=== PATIENT | female | born 1985 | race Caucasian/White ===

== ENCOUNTER 2017-07-25 12:17 | Emergency (ER) | payer BC, OTHER ==
[2017-07-25 12:54] VITALS: BP 143/71
[2017-07-25] MEDS ORDERED: metroNIDAZOLE TAB* 250 MG PO ONE (14:15)
--- NOTE | 2017-07-25 14:31 | UC ---
Matthew Al Rebecca, scribed for Lavinia Small MD on 07/25/17 at 1404 . Complaint Female HPI - HPI Summary HPI Summary: Pt is a 32 y/o F who presents to [facility] with report of bacterial vaginosis. For 2 days she has been experiencing vaginal discharge, vaginal itching and vaginal malodor after intercourse. Sx aggravated and alleviated by nothing. Denies dysuria, back pain, fever, chills. Pt states has a history or recurrent bacterial vaginosis. Pt states this is the same. Last Pt PMHx bacterial vaginosis with the last incident about 1 month ago where she was seen by [facility], had a pelvic exam done and was given a Dx of BV. Pt reports frequent incidences of BV with no PMHx STDs. No chance of . Pt denies dysuria, hematuria. nO back pain, fever - History Of Current Complaint Chief Complaint[place] [facility] Stated Complaint: BURNING URINATION Time Seen by Provider: 07/25/17 13:54 Hx Obtained From: Patient Hx Last Menstrual Period: 06/11/17 Onset/Duration: Lasting Days - 2 days, Still Present Severity Currently: None Pain Intensity: 0 Pain Scale Used: 0-10 Numeric Aggravating Factor(s): Nothing Alleviating Factor(s): Nothing Associated Signs And Symptoms: Positive: Vaginal Discharge Related Hx: Similar Episode/Dx as: - Bacterial vaginosis - Allergies/Home Medications Allergies/Adverse Reactions: Allergies Allergy/AdvReac Type Severity Reaction Status Date / Time Ibuprofen Allergy Hives Verified 07/25/17 12:54 Home Medications: Home Medications Apple Cider Vinegar 1 cap PO DAILY 07/25/17 [History Confirmed 07/25/17] Ascorbic Acid [Vitamin C] 1 tab PO DAILY 07/25/17 [History Confirmed 07/25/17] Cyanocobalamin [Vitamin B 12] 1 tab PO DAILY 07/25/17 [History Confirmed ] Garlic 1 tab PO DAILY 07/25/17 [History Confirmed 07/25/17] PMH/Surg Hx/FS Hx/Imm Hx - Additional Past Medical History Additional PMH: Negative PMHx: HTN, DM, COPD, asthma Previously Healthy: Yes - Surgical History Surgical History: Yes Surgery Procedure, Year, and Place: left foot bunion - Family History Known Family History: Positive: Other - Hallux valgus - Social History Occupation: Employed Full-time Lives: With Family Alcohol Use: Weekly Substance Use Type: None Smoking Status (MU): Light Every Day Tobacco Smoker Type: Cigarettes Amount Used/How Often: 1/2 ppd - Immunization History Most Recent Influenza Vaccination: Not UTD Review of Systems Constitutional: Negative Skin: Negative Eyes: Negative ENT: Negative Respiratory: Negative Cardiovascular: Negative Gastrointestinal: Negative Genitourinary: Vaginal/Penile Itching - Vaginal, Vaginal/Penile Discharge - Vaginal, Other - Vaginal malodor prior to or after intercourse Motor: Negative Neurovascular: Negative Musculoskeletal: Negative Neurological: Negative Psychological: Negative All Other Systems Reviewed And Are Negative: Yes - Comments Additional Review of Systems Comments: NEGATIVE: Dysuria, back pain, fever, chills Physical Exam Triage Information Reviewed: Yes Appearance: Well-Appearing, No Pain Distress, Well-Nourished Vital Signs: Initial Vital Signs Temp 99.1 F 07/25/17 12:50 Pulse 93 07/25/17 12:50 Resp 16 07/25/17 12:50 BP 143/71 07/25/17 12:50 Pulse Ox 98 07/25/17 12:50 Vital Signs Reviewed: Yes Eye Exam: Normal Eyes: Positive: Conjunctiva Clear ENT Exam: Normal ENT: Positive: Hearing grossly normal, TMs normal Neck exam: Normal Neck: Positive: Supple, Nontender, No Lymphadenopathy Respiratory Exam: Normal Respiratory: Positive: Chest non-tender, Lungs clear, Normal breath sounds, No respiratory distress, No accessory muscle use Cardiovascular Exam: Normal Cardiovascular: Positive: RRR, No Murmur, Pulses Normal Abdominal Exam: Normal Abdomen Description: Positive: Nontender, No Organomegaly, Soft, CVA Tenderness (R), CVA Tenderness (L), Other: - soft + BS no guarding, no rebound No cva b/l Pt adamant does not want pelvic exam- states sx same as always Neurological Exam: Normal Psychological Exam: Normal Skin Exam: Normal Complaint Female Dx - Course Course Of Treatment: Patient medications reviewed this visit. Elevated BP noted and advised to follow up with PCP. Pt refused pelvic exam. d/w pt other potential causes of vagindal discharge. Pt feels strongly this is what she has previously experienced. urinalysis neg for all negative. Will give Rx flagyl. reviewed with pt alcohol precautions. encouraged f/u if sx persist, change, or any other concerns. pt in agreement with plan - Differential Dx/Diagnosis Provider Diagnoses: vaginal discharge Discharge - Discharge Plan Condition: Stable Disposition: HOME Prescriptions: Metronidazole [Flagyl 500 MG TAB] 500 mg PO BID #1 tab Patient Education Materials: Bacterial Vaginosis (ED) Referrals: Wilfredo Carreon MD [Primary Care Provider] - Additional Instructions: Take medication as prescribed until gone Do not drink alcohol 72 hours before or after taking this medication to avoid a vomiting reaction If your symptoms persist, change or you have any other questions or concerns The documentation as recorded by the Matthew josé Rebecca accurately reflects the service I personally performed and the decisions made by , Lavinia Small MD.
== END 2017-07-25 14:21 | disposition home or self-care (01) ==
LOC: UCEAST 12:17
DX: N89.8 Other specified noninflammatory disorders of vagina (principal); Z32.02 Encounter for pregnancy test, result negative; Z88.6 Allergy status to analgesic agent; F17.210 Nicotine dependence, cigarettes, uncomplicated
CPT/HCPCS: 81003; 84702; 99202; G0463

== ENCOUNTER 2019-04-16 10:52 | Emergency (ER) | payer BC ==
[2019-04-16 11:08] VITALS: BP 134/86
--- NOTE | 2019-04-16 12:18 | UC ---
Respiratory Complaint HPI - HPI Summary HPI Summary: Approximately 2 and half weeks ago the patient had sudden onset of right-sided chest wall pain. She is a smoker. She uses the Mirena. 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 She states the pain was tolerable the past 2 weeks but today she fell that she should get checked since it had not improved and she doesn't feel she is able to work at her job because of the pain. She does have some pain on deep inspiration to the right rib cage area. She denies any recent upper respiratory illness. - History of Current Complaint Chief Complaint: UCBackPain Stated Complaint: PAIN IN RIB/BACK PAIN Time Seen by Provider: 04/16/19 11:24 Hx Obtained From: Patient Hx Last Menstrual Period: 04/12/19 ?: No Onset/Duration: Sudden Onset, Lasting Weeks, Other - Started experiencing pain to half weeks ago. Timing: Intermittent Episodes - And is able to replicate the pain with movement. Severity Initially: Mild Severity Currently: Moderate Pain Intensity: 7 Associated Signs And Symptoms: Positive: Negative - Pain on deep inspiration. - Risk Factors Pulmonary Embolism Risk Factors: Smoking Cardiac Risk Factors: Smoking - Allergies/Home Medications Allergies/Adverse Reactions: Allergies Allergy/AdvReac Type Severity Reaction Status Date / Time ibuprofen Allergy Hives Verified 04/16/19 11:05 naproxen [From Aleve] Allergy Hives Verified 04/16/19 11:05 PMH/Surg Hx/FS Hx/Imm Hx - Additional Past Medical History Additional PMH: Patient is unable to take NSAIDS because of her idiopathic urticaria Previously Healthy: Yes - has a history of idiopathic urticaria. - Surgical History Surgical History: Yes Surgery Procedure, Year, and Place: left foot bunion - Family History Known Family History: Positive: Other - Hallux valgus - Social History Occupation: Employed Full-time Alcohol Use: Weekly Substance Use Type: Marijuana Smoking Status (MU): Light Every Day Tobacco Smoker Type: Cigarettes Amount Used/How Often: 1/2 ppd Household Exposure Type: Cigarettes - Immunization History Most Recent Influenza Vaccination: Not UTD Review of Systems All Other Systems Reviewed And Are Negative: Yes Respiratory: Positive: Other - Pain on deep inspiration to the right chest wall. Cardiovascular: Positive: Negative Musculoskeletal: Positive: Other: - Patient is able to replicate the pain of the right chest wall with movement and with palpation at the area. Is Patient Immunocompromised?: No Physical Exam Triage Information Reviewed: Yes Appearance: Well-Appearing, No Pain Distress, Well-Nourished Vital Signs: Initial Vital Signs Temp 98.8 F 04/16/19 11:00 Pulse 94 04/16/19 11:00 Resp 18 04/16/19 11:00 BP 134/86 04/16/19 11:00 Pulse Ox 96 04/16/19 11:00 Vital Signs Reviewed: Yes Eyes: Positive: Conjunctiva Clear ENT: Positive: Hearing grossly normal, Pharynx normal, TMs normal, Uvula midline Neck: Positive: Supple, Nontender, No Lymphadenopathy Respiratory: Positive: Lungs clear, Normal breath sounds, No respiratory distress, No accessory muscle use Cardiovascular: Positive: RRR, No Murmur, Pulses Normal, Brisk Capillary Refill Musculoskeletal: Positive: Strength Intact, ROM Intact, No Edema, Other: - Right chest wall along the axillary line is tender on palpation midway down with no erythema, bruising, swelling or crepitus. Neurological: Positive: Alert, Muscle Tone Normal Psychological Exam: Normal Skin Exam: Normal Respiratory Course/Dx - Course Course Of Treatment: Chest x-ray: Negative I believe at this time this is more of a muscle strain of the right chest wall since the patient can replicate the pain as well as the fact that it is tender on palpation. I did consult with Dr. Morton as well as spoke with the patient that if this worsens or she has any concerns she is to go to the emergency room. She is a smoker. She has no history of pulmonary embolus or DVT nor immediate family history of those. 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 I'm going to give her off work until Friday with a definite follow-up with her primary care provider if no improvement and go to the emergency room for any worsening symptoms. She is unable to take NSAIDS because of her idiopathic urticaria. She may apply heat to the sore area throat today. - Differential Dx/Diagnosis Provider Diagnosis: Muscle strain of chest wall Discharge - Sign-Out/Discharge Documenting (check all that apply): Patient Departure All imaging exams completed and their final reports reviewed: Yes - Discharge Plan Condition: Fair Disposition: HOME Patient Education Materials: Chest Wall Pain (ED) Forms: *Work Release Referrals: Keith DORADO,Praneeth Garcia [Primary Care Provider] - Additional Instructions: Apply heat to the sore area, avoid movements that cause pain, follow-up with your primary care provider if no improvement in 2 or 3 days. Go to the emergency room if you have any worsening symptoms, shortness of breath or difficulty breathing or worsening pain. - Billing Disposition and Condition Condition: FAIR Disposition: Home
== END 2019-04-16 12:28 | disposition home or self-care (01) ==
LOC: UCEAST 10:52
DX: F17.210 Nicotine dependence, cigarettes, uncomplicated (principal); S29.011A Strain of muscle and tendon of front wall of thorax, initial encounter; X50.0XXA Overexertion from strenuous movement or load, initial encounter; Y93.F2 Activity, caregiving, lifting; Y92.9 Unspecified place or not applicable
CPT/HCPCS: 71046; 99201; G0463